=== PATIENT | male | born 1975 | race American Indian/Alaskan Native ===

== ENCOUNTER 2016-10-14 23:56 | Emergency (ER) | payer OTHER ==
[2016-10-15] MEDS ORDERED: TYLENOL ONE (01:04)
[2016-10-15] MEDS ORDERED: TYLENOL PO ONE (01:05)
[2016-10-15] MEDS ORDERED: ROCEPHIN IM ONE (03:18)
[2016-10-15] MEDS ORDERED: XYLOCAINE 1% MPF 5 mL INFILTRATI ONE (03:18)
[2016-10-15] MEDS ORDERED: DECADRON IM ONE (03:18)
--- NOTE | 2016-10-15 03:59 | Emergency Department Report ---
- General Chief Complaint: Sore Throat Stated Complaint: SORE THROAT Time Seen by Provider: 10/15/16 03:01 Source: patient Mode of arrival: Ambulatory Limitations: No Limitations - History of Present Illness Initial Comments: Patient comes into the ER today with complaints of sore throat and nasal congestion for the past 4 days. Patient states that 3 weeks ago he was diagnosed with strep throat and never finished all of his antibiotics. Patient thinks that may be infection is returning and believes that he has strep throat again. Patient states it is painful to swallow. Patient denies any cough, shortness of breath, chest pain. Patient has been taking [id number] medicine for his sinus congestion with some relief. - Related Data Previous Rx's Medication Instructions Recorded Last Taken Type Amoxicillin/K Clav Tab [Augmentin 1 tab PO Q12HR #20 tab 10/15/16 Unknown Rx 875 mg] Allergies Allergy/AdvReac Type Severity Reaction Status Date / Time No Known Allergies Allergy Verified 10/15/16 01:03 ED Review of Systems ROS: Stated complaint: SORE THROAT Other details as noted in HPI Constitutional: chills, fever Eyes: denies: eye pain, eye discharge, vision change ENT: throat pain, congestion. denies: ear pain, dental pain, hearing loss, epistaxis Respiratory: denies: cough, shortness of breath, wheezing Cardiovascular: denies: chest pain, palpitations Endocrine: no symptoms reported Gastrointestinal: denies: abdominal pain, nausea, vomiting, diarrhea Genitourinary: denies: urgency, dysuria Musculoskeletal: denies: back pain, joint swelling, arthralgia Skin: denies: rash, lesions Neurological: denies: headache, weakness, paresthesias Psychiatric: denies: anxiety, depression Hematological/Lymphatic: denies: easy bleeding, easy bruising ED Past Medical Hx - Past Medical History Previous Medical History?: No - Surgical History Past Surgical History?: Yes Additional Surgical History: Left Hand - Social History Smoking Status: Current Every Day Smoker Substance Use Type: Alcohol - Medications Home Medications: Home Medications Medication Instructions Recorded Confirmed Last Taken Type Amoxicillin/K Clav Tab [Augmentin 1 tab PO Q12HR #20 tab 10/15/16 Unknown Rx 875 mg] ED Physical Exam - General Limitations: No Limitations General appearance: alert, in no apparent distress - Head Head exam: Present: atraumatic, normocephalic - Eye Eye exam: Present: normal appearance, PERRL, EOMI. Absent: conjunctival injection, periorbital swelling, periorbital tenderness - ENT ENT exam: Present: mucous membranes moist, TM's normal bilaterally, normal external ear exam, other (bilateral posterior pharynx erythematous with tonsillar swelling. No signs of abscess noted. Bilateral nasal mucosa redness and swelling with left greater than right.) - Neck Neck exam: Present: normal inspection, full ROM, lymphadenopathy (bilateral tonsillar lymphadenopathy). Absent: tenderness, meningismus - Respiratory Respiratory exam: Present: normal lung sounds bilaterally. Absent: respiratory distress, wheezes, rales, rhonchi, chest wall tenderness, decreased breath sounds - Cardiovascular Cardiovascular Exam: Present: regular rate, normal rhythm, normal heart sounds. Absent: systolic murmur, diastolic murmur, rubs, gallop - GI/Abdominal GI/Abdominal exam: Present: soft, normal bowel sounds. Absent: distended, tenderness - Rectal Rectal exam: Present: deferred - Extremities Exam Extremities exam: Present: normal inspection - Back Exam Back exam: Present: normal inspection - Neurological Exam Neurological exam: Present: alert, oriented X3 - Psychiatric Psychiatric exam: Present: normal affect, normal mood - Skin Skin exam: Present: warm, dry, intact, normal color. Absent: rash ED Course Vital Signs 10/15/16 00:55 Temperature 99.5 F Pulse Rate 88 Respiratory 18 Rate Blood Pressure 163/99 [Right] O2 Sat by Pulse 99 Oximetry ED Medical Decision Making - Lab Data Negative rapid strep in the ER - Medical Decision Making Patient is nontoxic and hemodynamically stable. Despite rapid streps screen negative, I clinically have concern for patient having strep pharyngitis not detected on rapid swab. I believe patient would benefit from restarting antibiotics. I will start patient on antibiotics accordingly and patient is to follow up with his primary care doctor to ensure resolution of illness. Patient is in agreement with treatment plan and patient is stable for discharge. Critical care attestation.: If time is entered above; I have spent that time in minutes in the direct care of this critically ill patient, excluding procedure time. ED Disposition Clinical Impression: Pharyngitis, Sinusitis Disposition: - TO HOME OR SELFCARE Is pt being admited?: No Does the pt Need Aspirin: No Condition: Good Instructions: Pharyngitis (ED), Sinusitis (ED), Fever in Adults (ED) Prescriptions: Amoxicillin/K Clav Tab [Augmentin 875 mg] 1 tab PO Q12HR #20 tab Referrals: PRIMARY CARE, [Primary Care Provider] - 3-5 Days Time of Disposition: 04:01
[2016-10-15 04:35] VITALS: BP 163/91
== END 2016-10-15 04:35 | disposition home or self-care (01) ==
LOC: ED 23:56
DX: J02.9 Acute pharyngitis, unspecified (principal); J32.9 Chronic sinusitis, unspecified; F17.200 Nicotine dependence, unspecified, uncomplicated
CPT/HCPCS: 87116; 87430; 96372; 99283; J0696; J1100

== ENCOUNTER 2017-01-22 20:37 | Emergency (ER) | payer OTHER ==
[2017-01-22 21:13] VITALS: BP 148/88
== END 2017-01-23 03:37 | disposition left against medical advice (07) ==
LOC: ED 20:37
DX: Z04.3 Encounter for examination and observation following other accident (principal); Z53.21 Procedure and treatment not carried out due to patient leaving prior to being seen by health care provider

== ENCOUNTER 2018-10-06 10:27 | Emergency (ER) | payer SELFPAY ==
[2018-10-06] MEDS ORDERED: ADRENALIN ONE (10:45)
--- NOTE | 2018-10-06 11:28 | Emergency Department Report ---
ED CPR HPI - General Stated Complaint: CARDIAC ARREST Time Seen by Provider: 10/06/18 11:10 Source: family, EMS Mode of arrival: Stretcher - History of Present Illness Initial Comments: 43-year-old male presents to ED in cardiac arrest. Prior to calling EMS, patient's sister states patient started to sweat profusely and complain of shortness of breath. Family reports only history of chronic back pain for which he was taking pain medication. Upon EMS arrival pt was initially conscious and talking. Patient then became unresponsive and went into cardiac arrest. EMS reports initial rhythm was PEA. ACLS was initiated, Combitube was placed. EMS reports patient went into V. fib upon arrival on the hospital ramp. Patient was defibrillated and given amiodarone. Patient received a total of epi 3, sodium bicarbonate 1, amiodarone 1, and defibrillation 1. EMS reports ACLS ongoing for approximately 20 minutes prior to ED arrival. MD Complaint: stopped breathing Place: home Bystander CPR Performed: Yes Downtime Before ACLS Arrival (mins): 0 Associated Symptoms: shortness of breath Treatments Prior to Arrival: other airway device (combitube), chest compressions, defribrillated shocks # (1), epinephrine mgs # (3), sodium bicarbonate, amiodarone - Related Data Previous Rx's Medication Instructions Recorded Last Taken Type Amoxicillin/K Clav Tab [Augmentin 1 tab PO Q12HR #20 tab 10/15/16 Unknown Rx 875 mg] Allergies Allergy/AdvReac Type Severity Reaction Status Date / Time No Known Allergies Allergy Verified 10/15/16 01:03 ED Review of Systems ROS: Stated complaint: CARDIAC ARREST Other details as noted in HPI Comment: Unobtainable due to pts medical conditions Respiratory: shortness of breath ED Past Medical Hx - Surgical History Additional Surgical History: Left Hand - Social History Smoking Status: Never Smoker Substance Use Type: Alcohol - Medications Home Medications: Home Medications Medication Instructions Recorded Confirmed Last Taken Type Amoxicillin/K Clav Tab [Augmentin 1 tab PO Q12HR #20 tab 10/15/16 Unknown Rx 875 mg] ED Physical Exam - General General appearance: in distress - Head Head exam: Present: atraumatic, normocephalic - Eye Pupils: Present: other (fixed and dilated bilaterally) - Neck Neck exam: Present: normal inspection - Respiratory Respiratory exam: Present: normal lung sounds bilaterally, other (no spontaneous breaths) - Cardiovascular Cardiovascular Exam: Present: other (no palpable pulse) - GI/Abdominal GI/Abdominal exam: Present: soft, distended (mild) - Extremities Exam Extremities exam: Present: normal inspection - Neurological Exam Neurological exam: Present: other (GCS= 3) - Skin Skin exam: Present: warm, dry, intact, normal color - Intubation Sedative: none Laryngoscope: Leonor Size: 4 ET Tube Size: 7.5 Tube Secured Depth (cm): 23 Tube Secured Location: teeth Tube Placement Confirmation: visualized tube passing t, equal breath sounds bilat, no breath sounds over epi, confirmation by capnometr Patient Tolerated Procedure: well, no complications Intubation Complications: none ED Medical Decision Making - Medical Decision Making 43 yo male presented to ED in cardiac arrest. Only report of shortness of breath and diaphoresis per family. No history other than chronic back pain for which he was taking pain meds. Upon EMS arrival to home, pt was initially talking somewhat, but then became unresponsive and pulseless. Initialy rhythm of PEA. Pt then went into Vfib and was defibrillated and received amiodarone 300 mg. ACLS ongoing for approx 20 min prior to ED arrival. Upon ED arrival, pt in asystole. Combitube was removed and I intubated the patient. ACLS was continued. Pt received multiple doses of Epi and sodium bicarb. Pt remained in asystole for majority of the code. Pupils fixed and dilated. No ROSC achieved. Time of called at 10:44 AM. Please see nurse's note for details. Critical Care Time: Yes Critical care time in (mins) excluding proc time.: 35 Critical care attestation.: If time is entered above; I have spent that time in minutes in the direct care of this critically ill patient, excluding procedure time. Critical Care Time: 35 minutes ED Disposition Clinical Impression: Cardiac arrest Disposition: DC-20 Is pt being admited?: No Condition: Stable Time of Disposition: 11:48
== END 2018-10-06 14:40 ==
LOC: ED 10:27
DX: I46.9 Cardiac arrest, cause unspecified (principal)
CPT/HCPCS: 99291; J0171